=== PATIENT | female | born 1970 | race Caucasian/White ===

== ENCOUNTER 2023-11-25 09:29 | Outpatient (AMB) | payer OTHER, SELFPAY ==
--- NOTE | 2023-11-25 09:31 | MHC.OFFVIS ---
Vital Signs 11/25/23 09:38 11/25/23 09:38 11/25/23 10:28 Height 5 ft 5 in Weight 261 lb BMI 43.4 BP 219/103 H 188/100 H 164/78 H Blood Pressure Location Rt brachial Lt brachial Lt brachial Position Sitting Sitting Sitting Pulse 74 Pulse Source Pulse Oximeter Pulse Oximetry (%) 98 Oxygen Delivery Method Room Air Comment bp done manually Intake Visit Reasons: Right Hip Pain Senior Maintenance Technician Required: Yes Senior Maintenance Technician Language: Turkmen Senior Maintenance Technician Name: This provider speaks Turkmen Accompanied by: Self / Same As Patient Allergies Latex, Natural Rubber Adverse Reaction (Mild, Verified 11/25/23 09:53) Unknown HPI HPI Right Hip Pain: Details: Patient is a pleasant 53-year-old Turkmen female presents today for initial evaluation of right lateral hip pain. This provider is fluent in patient's [place] language. Patient denies any recent trauma, injury, or falls. She reports right hip pain for over 1 year resistant to home exercise, daily walking, NSAIDs, Tylenol, heat and ice, and topical applications. Patient completed physical therapy in the past and currently is not able to pursue PT due to [id number] right hip pain. Pain is present at rest and activity but worse with walking, climbing stairs, or sleeping on her right side. Patient also reports right lateral hip pain with prolonged driving. Denies previous hip injections or surgery. She completed a hip imaging at [facility] several months ago, please imaging are not available for review today. She was told she has right hip OA. Patient denies any fever or chills, abdominal or groin pain, back pain, weakness, bladder or bowel dysfunction or saddle anesthesia. Location: Right lateral hip Duration: Over one year Characteristics of symptom or complaint: Aching, sharp, throbbing Aggravating or associated factors: Walking, movements, right side sleeping, standing, climbing stairs, driving Relieving factors: Topical creams, Voltaren, Tylenol, Ibuprofen, cold packs Treatment: PT in the past, daily walking for exercises [facility] Medical History (Updated 11/25/23 @ 11:55 by RAPHAEL Juarez) Trochanteric bursitis, right hip Diarrhea, unspecified Insomnia, unspecified Generalized abdominal pain Fatty (change of) liver, not elsewhere classified Thyroiditis, unspecified Abdominal pain Pain in hip Review of Systems Const All systems reviewed & are unremarkable except as noted in HPI and below Physical Exam Vital Signs: Last Vital Signs Pulse 74 11/25/23 09:38 BP 164/78 H 11/25/23 10:28 Pulse Ox 98 11/25/23 09:38 Oxygen Delivery Method Room Air 11/25/23 09:38 BMI result Body Mass Index 43.4 General: Appears afebrile. Alert and oriented. Mood and affect appropriate. Follows and participates in conversation appropriately. Respiratory effort is unlabored. No cough. Able to transition from sit to stand unassisted. Ambulates with bilaterally normal heel strike and toe off. Report RLE pain with walking or standing, or prolonged sitting. General: Yes no CVA tenderness Back/Spine/Pelvis Other: Patient is able to walk and stand on heels and tip toes with mild to moderate difficulty on the right due to pain otherwise demonstrating good motor tone. Slightly antalgic gait with limping. Can flex forward to 75-80degrees and extend to 10-15 degrees without significant lumbar pain. Demonstrates 5/5 left and 4.5/5 right strength of quadriceps bilaterally as well as flexion/dorsiflexion of bilateral feet against resistance. 2+ pedal pulses bilaterally. Seated straight leg rise with dorsiflexion negative bilaterally. +1 patellar and achilles reflexes bilaterally. Facet loading test positive bilaterally. Froylan sign is negative bilaterally, Edison?s, Pelvic compression and Stinchfield tests reproduce bilateral lateral hip pain, but no back pain, right>left. No groin pain with I/E hip rotations. Significant TTP to right GTB. Back: no CVA tenderness Cervical Spine: cervical ROM normal and No Cervical spine tenderness Thoracic/Lumbar Spine: thoracic and lumbar spine normal to inspection, Thoracic/lumbar spine scar(s), thoraco-lumbar ROM normal, Lasegue's sign negative, straight leg raise negative bilaterally, No thoracic spinal tenderness and No lumbar spinal tenderness Sacroiliac joints: bilaterally nontender Results Reviewed Results Reviewed: No imaging reports are available for review. Assessment & Plan Assessment & Plan (1) Right hip pain: Code(s): M25.551 - Pain in right hip Category: Medical (2) Greater trochanteric bursitis of right hip: Code(s): M70.61 - Trochanteric bursitis, right hip Category: Medical (3) Morbid obesity with BMI of 40.0-44.9, adult: Code(s): E66.01 - Morbid (severe) obesity due to excess calories; Z68.41 - Body mass index [BMI] 40.0-44.9, adult Category: Medical Plan Medical release request sent to [facility] for most recent hip and pelvis imaging. Patient's symptoms are most consistent with right hip greater trochanteric bursitis and she requests therapeutic injection for it. Schedule right therapeutic GTB injection with local and fluoroscopy. Expectations, risks and benefits were reviewed. Patient is aware she will be contacted to schedule this procedure. Short script provided for tramadol for [id number] pain only. Side effects and precautions were discussed with patient in greater detail. Narcan sent today as well and educated patient on use and safety of both medications. All questions were answered and the patient is in agreement of plan. Follow-up after injections and sooner as needed. Medications: New tramadol 50 mg PO BID PRN 20 tabs 0RF pain (scale score 7-10) 10 days M25.551 - Pain in right hip, M70.61 - Trochanteric bursitis, right hip naloxone 4 mg/actuation (Narcan) spray 1 dose into ONE nostril; alternate nostrils w each dose until help arrives 4 mg intranasal Q2M PRN 2 ea 0RF opioid overdose Coding Level of Care Code New Pt Level 4 (62548) Complex EM visit Add On G2211 Diagnoses Right hip pain M25.551 Greater trochanteric bursitis of right hip M70.61 Morbid obesity with BMI of 40.0-44.9, adult E66.01; Z68.41
[2023-11-25 09:38] VITALS: BP 188/100; BP 219/103; PULSE 74; O2SAT 98; BMI 43.4
[2023-11-25 10:28] VITALS: BP 164/78
== END 2023-11-25 10:12 | disposition home or self-care (01) ==
PROVIDERS: PCP Internal Medicine; Visit Provider Nurse Practitioner Family
DX: M25.551 Pain in right hip (principal); M70.61 Trochanteric bursitis, right hip; E66.01 Morbid (severe) obesity due to excess calories; Z68.41 Body mass index [BMI] 40.0-44.9, adult
CPT/HCPCS: 99204; G2211

== ENCOUNTER → 2023-11-25 09:29 | Outpatient (BNVA) | payer OTHER, SELFPAY | PROVIDERS: PCP Internal Medicine; Visit Provider Nurse Practitioner Family | DX: M25.551 Pain in right hip (principal); M70.61 Trochanteric bursitis, right hip; E66.01 Morbid (severe) obesity due to excess calories; Z68.41 Body mass index [BMI] 40.0-44.9, adult | CPT/HCPCS: 99202 ==

== ENCOUNTER 2023-12-07 06:10 | Outpatient (REF) | payer OTHER, SELFPAY | END 2023-12-07 06:11 | disposition home or self-care (01) | LOC: CF 06:10 | PROVIDERS: Visit Provider Anesthesiology | DX: M70.61 Trochanteric bursitis, right hip (principal); M25.551 Pain in right hip | CPT/HCPCS: 20610; J2795; J3301 ==

== ENCOUNTER 2023-12-07 13:27 | Outpatient (AMB) | payer OTHER, SELFPAY ==
--- NOTE | 2023-12-07 13:29 | A.OFFVIS_ITS ---
Vital Signs 12/07/23 14:02 Height 5 ft 5 in Weight 261 lb BMI 43.4 BP 164/90 H Blood Pressure Location Lt brachial Position Sitting Respiration 16 Pulse 63 Pulse Source Pulse Oximeter Pulse Oximetry (%) 98 Oxygen Delivery Method Room Air Comment pre-op Intake Visit Reasons: RIGHT THERAPEUTIC GTB INJECTION/ATIVAN REQUESTED Allergies Latex, Natural Rubber Adverse Reaction (Mild, Verified 12/07/23 14:12) Unknown [facility] Medical History (Updated 11/25/23 @ 11:55 by RAPHAEL Juarez) Trochanteric bursitis, right hip Diarrhea, unspecified Insomnia, unspecified Generalized abdominal pain Fatty (change of) liver, not elsewhere classified Thyroiditis, unspecified Abdominal pain Pain in hip Physical Exam Vital Signs: Last Vital Signs Pulse 63 12/07/23 14:02 Resp 16 12/07/23 14:02 BP 164/90 H 12/07/23 14:02 Pulse Ox 98 12/07/23 14:02 Oxygen Delivery Method Room Air 12/07/23 14:02 BMI result Body Mass Index 43.4 Assessment & Plan Assessment & Plan (1) Greater trochanteric bursitis of right hip: Code(s): M70.61 - Trochanteric bursitis, right hip Category: Medical (2) Right hip pain: Code(s): M25.551 - Pain in right hip Category: Medical Plan Deya is very pleasant 53 years old female who is suffering from right trochanteric bursitis. She came today for non image guided intertrochanteric bursa steroid injection. Informed consent was explained. The patient was positioned left lateral decubital on examination bed. Time-out was performed delineating name and date of of the patient as well as nature of the procedure as well as site of the procedure. The right hip of the patient was prepped with ChloraPrep, the projection of tip of the trochanter was palpated under the skin. After that sterilely obtained 10 cc of ropivacaine 0.5% mixed with Kenalog 40 mg was injected into the projection of the tip of the right trochanter in fan-like fashion. The patient tolerated the procedure well. Needle was withdrawn. Sterile Band-Aid was applied. The patient recovered and went home without immediate complications. Orders: Orders FL guidance in treatment room Today M70.61 - Trochanteric bursitis, right hip Coding Level of Care Code Procedure Only Diagnoses Greater trochanteric bursitis of right hip M70.61 Right hip pain M25.551
[2023-12-07 14:02] VITALS: BP 164/90; PULSE 63; RESP 16; O2SAT 98; BMI 43.4
== END 2023-12-07 13:50 | disposition home or self-care (01) ==
LOC: HO.PMCPRC 13:28
PROVIDERS: PCP Internal Medicine; Visit Provider Anesthesiology
DX: M70.61 Trochanteric bursitis, right hip (principal); M25.551 Pain in right hip
CPT/HCPCS: 20610

== ENCOUNTER 2024-01-03 11:37 | Outpatient (AMB) | payer OTHER, SELFPAY ==
--- NOTE | 2024-01-03 11:41 | MHC.OFFVIS ---
Vital Signs 01/03/24 11:44 Height 5 ft 5 in Weight 261 lb 8 oz BMI 43.5 BP 138/90 H Blood Pressure Location Lt brachial Position Sitting Respiration 16 Pulse 64 Pulse Source Pulse Oximeter Pulse Oximetry (%) 94 Oxygen Delivery Method Room Air Intake Visit Reasons: RIGHT THERAPEUTIC GTB INJECTION Intake Note: Patient comes in for post-op. Reports pain 5-6/10 bilateral knee pain, left worse than right. Ground Service Equipment Mechanic Required: Yes Ground Service Equipment Mechanic Language: [place] Citizen Ground Service Equipment Mechanic Services: Ground Service Equipment Mechanic Offered & Declined Ground Service Equipment Mechanic Name: Provider is fluent in [place] Citizen Allergies Latex, Natural Rubber Adverse Reaction (Mild, Verified 01/03/24 11:45) Unknown Medication List - Last Reconciled 01/03/24 by RAPHAEL Juarez aspirin 81 mg PO DAILY carvedilol 12.5 mg PO BID diclofenac potassium 50 mg PO BID PRN 30 days lisinopril 40 mg PO DAILY lorazepam 1 mg PO TID naloxone 4 mg/actuation (Narcan) 4 mg intranasal Q2M PRN pantoprazole 20 mg PO DAILY tramadol 50 mg PO BID PRN 10 days zolpidem 10 mg PO BEDTIME PRN HPI Comments Details: Patient presents today to assess response to Right therapeutic GTB injection on 12/07/[address] Lewis. [place] Citizen machine biller not utilized today as this provider is fluent in the patient's pok[place] language. Patient reports 100 % ongoing pain relief with partial improvement in her daily activities and functioning, mobility and sleep. Patient reported concerning symptoms on the next day after injections including flushed face and headache, temporary elevation in BP and blood sugar to 119 which was resolved with taking extra Lisinopril for 2 days and regularly checking her blood sugars. She notified our office with her symptoms which are consistent with side effects related to steroids. She also suffers from right hip OA, neck pain with spasms and bilateral knee pain, left worse than right. Denies radiating back pain, groin, burning, numbness, tingling, bladder or bowel dysfunction or saddle anesthesia. Denies any recent cough, cold, infection, fever or other significant changes in medical history since last office visit. Past Procedures: 12/07/23: Right Therapeutic GTB injection-100% ongoing pain relief PRIOR: Patient is a pleasant 53-year-old [place] Citizen female presents today for initial evaluation of right lateral hip pain. This provider is fluent in patient's pok[place] language. Patient denies any recent trauma, injury, or falls. She reports right hip pain for over 1 year resistant to home exercise, daily walking, NSAIDs, Tylenol, heat and ice, and topical applications. Patient completed physical therapy in the past and currently is not able to pursue PT due to [id number] right hip pain. Pain is present at rest and activity but worse with walking, climbing stairs, or sleeping on her right side. Patient also reports right lateral hip pain with prolonged driving. Denies previous hip injections or surgery. She completed a hip imaging at [facility] several months ago, please imaging are not available for review today. She was told she has right hip OA. Patient denies any fever or chills, abdominal or groin pain, back pain, weakness, bladder or bowel dysfunction or saddle anesthesia. Location: Right lateral hip Duration: Over one year Characteristics of symptom or complaint: Aching, sharp, throbbing Aggravating or associated factors: Walking, movements, right side sleeping, standing, climbing stairs, driving Relieving factors: Topical creams, Voltaren, Tylenol, Ibuprofen, cold packs Treatment: PT in the past, daily walking for exercises [facility] Medical History (Updated 01/03/24 @ 12:43 by RAPHAEL Juarez) Trochanteric bursitis, right hip Diarrhea, unspecified Insomnia, unspecified Generalized abdominal pain Fatty (change of) liver, not elsewhere classified Thyroiditis, unspecified Abdominal pain Pain in hip Social History Household Members: Family Housing: House Alcohol intake: never Patient Tobacco Use Status: Never used Tobacco Review of Systems Const All systems reviewed & are unremarkable except as noted in HPI and below Physical Exam General: Appears afebrile. No acute distress. Morbidly obese. Alert and oriented. Mood and affect appropriate. Pleasant. Follows and participates in conversation appropriately. Respiratory effort is unlabored. No cough. Able to transition from sit to stand unassisted. Ambulates with bilaterally normal heel strike and toe off. Neck Neck: Yes full ROM (mildly limited with extension due to pain), Yes no lymphadenopathy, Yes trachea midline, Yes supple, No anterior neck swelling, Yes no JVD and Yes prominent dorsocervical fat pad General: Yes no CVA tenderness Back/Spine/Pelvis Other: No groin pain with I/E hip rotations. No TTP to GTB on the right, mild TTP to left GTB. Back: no CVA tenderness Cervical Spine: loss of normal cervical lordosis, cervical muscular tenderness, pain with cervical ROM, No Cervical spine scars present, cervical spasm, No Cervical spine tenderness and No step off deformity Thoracic/Lumbar Spine: thoracic and lumbar spine normal to inspection, Thoracic/lumbar spine scar(s), Lasegue's sign negative, straight leg raise negative bilaterally, paraspinal muscle tenderness, No thoracic spinal tenderness and No lumbar spinal tenderness Pelvis: no buttock tenderness Sacroiliac joints: bilaterally nontender Extrem General: Yes capillary refill normal, Yes no clubbing, cyanosis or edema and Yes no calf tenderness Right lower extremity: knee (Limited ROM due to pain.) Details: normal to inspection, tenderness Location: of the patella, of the medial joint line and of the lateral joint line and crepitus; no swelling, no ecchymosis, no deformity and no unusual warmth Left lower extremity: knee (Limited ROM due to pain.) Details: normal to inspection, tenderness Location: of the medial joint line and of the lateral joint line, swelling Location: of the popliteal fossa and crepitus; no ecchymosis, no deformity and no unusual warmth Results Reviewed Results Reviewed: Assessment & Plan Assessment & Plan (1) Bilateral knee pain: Code(s): M25.561 - Pain in right knee; M25.562 - Pain in left knee Category: Medical (2) Bilateral primary osteoarthritis of knee: Code(s): M17.0 - Bilateral primary osteoarthritis of knee Category: Medical (3) Muscle spasms of neck: Code(s): M62.838 - Other muscle spasm Category: Medical (4) Cervical spondylosis: Code(s): M47.812 - Spondylosis without myelopathy or radiculopathy, cervical region Category: Medical (5) Morbid obesity with BMI of 40.0-44.9, adult: Code(s): E66.01 - Morbid (severe) obesity due to excess calories; Z68.41 - Body mass index [BMI] 40.0-44.9, adult Category: Medical (6) Greater trochanteric bursitis of right hip: Code(s): M70.61 - Trochanteric bursitis, right hip Category: Medical (7) Right hip pain: Code(s): M25.551 - Pain in right hip Category: Medical Plan Patient is one month status post right therapeutic GTB injection with ongoing 100% pain relief. She developed temporary side effects with steroids, including headache, flushing face and elevation in BP and blood sugar which she reports resolved in 2 days. Patient is aware that she can not receive another injection in this area for another two-three months. Patient is aware to monitor for any side effects. Imaging from [facility] for spine and hip areas were reviewed and discussed with patient today. Will proceed with bilateral knee x-rays to assess degree of arthritis. Discussed interventional treatments, including gel vs cortisone injections, diagnostic nerve blocks for potential genicular RFA vs Sprint PNS trial. Short script provided for tramadol for gptoustl-es-rkycjb pain only for knee and hip pain and script for tizanidine for neck pain with muscle spasms. Side effects and precautions were discussed with patient in greater detail. Patient has Narcan at home. All questions were answered and the patient is in agreement of plan. Follow-up after injections and sooner as needed. Orders: Orders XR knee LT 3V Today M17.0 - Bilateral primary osteoarthritis of knee, M25.561 - Pain in right knee, M25.562 - Pain in left knee XR knee RT 3V Today M17.0 - Bilateral primary osteoarthritis of knee, M25.561 - Pain in right knee, M25.562 - Pain in left knee Medications: New lidocaine 5% 2 patches topical DAILY 30 days 60 ea 0RF pain M17.0 - Bilateral primary osteoarthritis of knee, M25.561 - Pain in right knee, M25.562 - Pain in left knee tizanidine 4 mg PO BEDTIME 90 days PRN 90 tabs 1RF muscle spasticity M47.812 - Spondylosis without myelopathy or radiculopathy, cervical region, M62.838 - Other muscle spasm Changed From tramadol 50 mg PO BID 10 days PRN 20 tabs 0RF pain (scale score 7-10) M25.551 - Pain in right hip, M25.561 - Pain in right knee, M25.562 - Pain in left knee, M70.61 - Trochanteric bursitis, right hip To tramadol 50 mg PO BID 15 days PRN 30 tabs 0RF pain (scale score 7-10) M25.551 - Pain in right hip, M25.561 - Pain in right knee, M25.562 - Pain in left knee, M70.61 - Trochanteric bursitis, right hip Coding Level of Care Code Est Pt Level 4 (03240) Complex EM visit Add On G2211 Diagnoses Bilateral knee pain M25.561; M25.562 Bilateral primary osteoarthritis of knee M17.0 Muscle spasms of neck M62.838 Cervical spondylosis M47.812 Morbid obesity with BMI of 40.0-44.9, adult E66.01; Z68.41 Greater trochanteric bursitis of right hip M70.61 Right hip pain M25.551
[2024-01-03 11:44] VITALS: BP 138/90; PULSE 64; RESP 16; O2SAT 94; BMI 43.5
== END 2024-01-03 12:06 | disposition home or self-care (01) ==
PROVIDERS: PCP Internal Medicine; Visit Provider Nurse Practitioner Family
DX: M25.561 Pain in right knee (principal); M25.562 Pain in left knee; M17.0 Bilateral primary osteoarthritis of knee; M62.838 Other muscle spasm; M47.812 Spondylosis without myelopathy or radiculopathy, cervical region; E66.01 Morbid (severe) obesity due to excess calories; Z68.41 Body mass index [BMI] 40.0-44.9, adult; M70.61 Trochanteric bursitis, right hip; M25.551 Pain in right hip
CPT/HCPCS: 99214; G2211

== ENCOUNTER 2024-01-03 11:37 | Outpatient (REF) | payer OTHER, SELFPAY ==
--- NOTE | ~2024-01-03 | XR_ITS ---
EXAMINATION: XR KNEE, LEFT CLINICAL INFORMATION: M25.561 - Pain in right knee COMPARISON: None available. TECHNIQUE: Three views of the left knee. FINDINGS: No fracture, dislocation, or suspicious bone lesion. Normal bone mineralization. Normal alignment. Minimal joint space narrowing medial compartment and patellofemoral compartment with small marginal osteophytes. Lateral compartment appears preserved. There is no evidence of joint effusion present. There is no soft tissue abnormality. XR/XR knee LT 3V IMPRESSION: 1. No acute findings. No joint effusion. 2. Mild medial and patellofemoral compartment osteoarthrosis. Electronically signed by: Luis Delvalle MD 01/18/2024 01:44 PM [facility]
--- NOTE | ~2024-01-03 | XR_ITS ---
EXAMINATION: XR KNEE, RIGHT CLINICAL INFORMATION: M25.561 - Pain in right knee COMPARISON: None available. TECHNIQUE: Three views of the right knee. FINDINGS: No fracture, dislocation, or suspicious bone lesion. Normal bone mineralization. Normal alignment. Minimal joint space narrowing medial compartment and patellofemoral compartment with small marginal osteophytes. Mild lateral patellar tilt. Lateral compartment appears preserved. There is no evidence of joint effusion present. There is no soft tissue abnormality. XR/XR knee RT 3V IMPRESSION: 1. No acute findings. No joint effusion. 2. Mild medial and patellofemoral compartment osteoarthrosis. Electronically signed by: Luis Delvalle MD 01/18/2024 01:46 PM EST
== END 2024-01-03 11:38 | disposition home or self-care (01) ==
LOC: HO.XRAY 11:37
PROVIDERS: PCP Internal Medicine; Visit Provider Nurse Practitioner Family
DX: M17.0 Bilateral primary osteoarthritis of knee (principal); M62.838 Other muscle spasm; M47.812 Spondylosis without myelopathy or radiculopathy, cervical region; M70.61 Trochanteric bursitis, right hip; M25.551 Pain in right hip; E66.01 Morbid (severe) obesity due to excess calories; Z68.41 Body mass index [BMI] 40.0-44.9, adult
CPT/HCPCS: 73562; 99212

== ENCOUNTER → 2024-01-03 12:15 | Outpatient (BNV) | payer OTHER, SELFPAY | PROVIDERS: PCP Internal Medicine; Visit Provider Radiology Diagnostic Radiology | DX: M25.562 Pain in left knee (principal); M25.561 Pain in right knee | CPT/HCPCS: 73562 ==

== ENCOUNTER 2024-02-03 10:04 | Outpatient (AMB) | payer OTHER, SELFPAY ==
[2024-02-03 10:24] VITALS: BP 178/99; PULSE 68; O2SAT 96; BMI 43.3
--- NOTE | 2024-02-03 10:24 | MHC.OFFVIS ---
Vital Signs 02/03/24 10:24 Height 5 ft 5 in Weight 260 lb BMI 43.3 BP 178/99 H Blood Pressure Location Lt brachial Position Sitting Pulse 68 Pulse Source Pulse Oximeter Pulse Oximetry (%) 96 Oxygen Delivery Method Room Air Intake Visit Reasons: LEFT KNEE EUFLEXXA INJECTION Allergies Latex, Natural Rubber Adverse Reaction (Mild, Verified 02/03/24 10:29) Unknown Medication List - Last Reconciled 02/03/24 by Violet Llamas, POLICY CHANGE CLERKS SUPERVISOR aspirin 81 mg PO DAILY carvedilol 12.5 mg PO BID diclofenac potassium 50 mg PO BID PRN 30 days lidocaine 5% 2 patches topical DAILY 30 days lisinopril 40 mg PO DAILY lorazepam 1 mg PO TID naloxone 4 mg/actuation (Narcan) 4 mg intranasal Q2M PRN pantoprazole 20 mg PO DAILY tizanidine 4 mg PO BEDTIME PRN 90 days tramadol 50 mg PO Q8H PRN 15 days zolpidem 10 mg PO BEDTIME PRN PFSH Medical History (Updated 01/03/24 @ 12:43 by RAPHAEL Juarez) Trochanteric bursitis, right hip Diarrhea, unspecified Insomnia, unspecified Generalized abdominal pain Fatty (change of) liver, not elsewhere classified Thyroiditis, unspecified Abdominal pain Pain in hip Social History (Updated 01/03/24 @ 12:26 by RAPHAEL Juarez) Household Members: Family Housing: House Alcohol intake: never Patient Tobacco Use Status: Never used Tobacco Office Procedures AMB Joint Injection/Aspiration Joint Injection/Aspiration Primary Site: left knee Approach Used: anteromedial Coding 00729 - Large joint Procedure code (CPT) selection complete Office Meds Synvisc-One 48 mg/6 mL intra-articular syringe Performing Provider: Steve Lewis MD Performing Location: [facility] Documented (not given) by: Steve Lewis MD on 02/03/24 10:29 Reason Not Given: No Longer Necessary Euflexxa 10 mg/mL (mw 2.4-3.6 million) intra-articular syringe Performing Provider: Steve Lewis MD Performing Location: [facility] Administered by: Steve Lewis MD on 02/03/24 10:29 Dose Route Admin Location Dispensed Lot Number Expiration Date [place] [employer] Announcer 20 mg intra-articular 2 mL [id number] 01/14/25 [address]-6 [employer] Assessment & Plan Assessment & Plan (1) Bilateral knee pain: Code(s): M25.561 - Pain in right knee; M25.562 - Pain in left knee Category: Medical (2) Bilateral primary osteoarthritis of knee: Code(s): M17.0 - Bilateral primary osteoarthritis of knee Category: Medical Plan Intra-articular left knee hyaluronic acid preparation injection. After obtaining informed consent were risks benefits and alternatives were explained to the patient, the patient was positioned sitting on the examination bed. The left knee was exposed. Time-out was performed. The anterior medial surface of the patient's knee was prepped with ChloraPrep and after that sterilely obtained Euflexxa 2 cc was injected from anterior medial to posterior lateral direction into retropatellar space. Upon completion of the injection needle was removed sterile Band-Aid was applied. Patient tolerated procedure well. She was instructed to move the lower leg to spread the medication in the joint. Orders: Orders AMB Joint Injection/Aspiration Today M17.0 - Bilateral primary osteoarthritis of knee, M25.561 - Pain in right knee, M25.562 - Pain in left knee Medications: New Synvisc-One (hylan g-f 20) 48 mg (6 mL) intra-articular ONCE 6 mL 0RF NS M17.0 - Bilateral primary osteoarthritis of knee, M25.561 - Pain in right knee, M25.562 - Pain in left knee Euflexxa (sodium hyaluronate (viscosup)) 20 mg (2 mL) intra-articular ONCE 2 mL 0RF NS M17.0 - Bilateral primary osteoarthritis of knee, M25.561 - Pain in right knee, M25.562 - Pain in left knee Coding Level of Care Code Procedure Only Diagnoses Bilateral knee pain M25.561; M25.562 Bilateral primary osteoarthritis of knee M17.0 CPT Codes Coding - 64460 Large joint: 01944 - Large joint ([id number])
== END 2024-02-03 10:26 | disposition home or self-care (01) ==
PROVIDERS: PCP Internal Medicine; Visit Provider Anesthesiology
DX: M25.562 Pain in left knee (principal); M17.0 Bilateral primary osteoarthritis of knee
CPT/HCPCS: 20610

== ENCOUNTER → 2024-02-03 10:04 | Outpatient (BNVA) | payer OTHER, SELFPAY | PROVIDERS: PCP Internal Medicine; Visit Provider Anesthesiology | DX: M17.0 Bilateral primary osteoarthritis of knee (principal) | CPT/HCPCS: 20610; J7323 ==

== ENCOUNTER 2024-03-03 13:11 | Outpatient (AMB) | payer OTHER, SELFPAY ==
--- NOTE | 2024-03-03 13:11 | MHC.OFFVIS ---
Vital Signs 03/03/24 13:12 Height 5 ft 5 in Intake Visit Reasons: LEFT KNEE EUFLEXXA INJECTION [employer] Required: Yes [employer] Language: Croatian [employer] Services: [employer] Offered & Declined [employer] Name: Provider is fluent in Croatian Information Interpreted: non-clinical & clinical Allergies Latex, Natural Rubber Adverse Reaction (Mild, Verified 03/03/24 13:12) Unknown HPI Comments Details: Patient presents today via telehealth encounter to assess response to left knee EUFLEXXA injection on 02/03/[address] Lewis. Patient reports 70-75% ongoing pain relief since procedure with significant improvement in her mobility, range of motion, climbing stairs with improved tolerance in better sleep. She received right therapeutic GTB injection on 12/07/23 and continues to report ongoing benefits. Denies any recent cough, cold, infection, fever or other significant changes in medical history since last office visit. Past Procedures: 02/03/24: Left knee Euflexxa skstjuyqs-11-89% ongoing pain relief 12/07/23: Right Therapeutic GTB injection-100% ongoing pain relief PRIOR: Patient is a pleasant 53-year-old Croatian female presents today for initial evaluation of right lateral hip pain. This provider is fluent in patient's c[place] language. Patient denies any recent trauma, injury, or falls. She reports right hip pain for over 1 year resistant to home exercise, daily walking, NSAIDs, Tylenol, heat and ice, and topical applications. Patient completed physical therapy in the past and currently is not able to pursue PT due to [id number] right hip pain. Pain is present at rest and activity but worse with walking, climbing stairs, or sleeping on her right side. Patient also reports right lateral hip pain with prolonged driving. Denies previous hip injections or surgery. She completed a hip imaging at [facility] several months ago, please imaging are not available for review today. She was told she has right hip OA. Patient denies any fever or chills, abdominal or groin pain, back pain, weakness, bladder or bowel dysfunction or saddle anesthesia. Location: Right lateral hip Duration: Over one year Characteristics of symptom or complaint: Aching, sharp, throbbing Aggravating or associated factors: Walking, movements, right side sleeping, standing, climbing stairs, driving Relieving factors: Topical creams, Voltaren, Tylenol, Ibuprofen, cold packs Treatment: PT in the past, daily walking for exercises [facility] Medical History Trochanteric bursitis, right hip Diarrhea, unspecified Insomnia, unspecified Generalized abdominal pain Fatty (change of) liver, not elsewhere classified Thyroiditis, unspecified Abdominal pain Pain in hip Social History Household Members: Family Housing: House Alcohol intake: never Patient Tobacco Use Status: Never used Tobacco Review of Systems Const All systems reviewed & are unremarkable except as noted in HPI and below ENT Reports Normal hearing present Neuro Reports Normal hearing present and Denies confusion Psych Denies confusion Physical Exam Const General: cooperative, alert and awake; No confusion Orientation/consciousness: patient oriented x3 and No confusion Resp Effort & Inspection: able to speak in complete sentences, no audible wheezes and no cough Neuro General: patient oriented x3 and No confusion Cranial nerves: Yes Normal hearing present Cognition (Neuro): normal cognition Psych Mental Status: mental status grossly normal Speech and movement: Clear speech present Affect: normal affect Attitude: cooperative Thought process: Normal thought process present Thought content: Normal thought content present and No Depressive thoughts present Insight: Good insight present (Psych) Judgement: Good judgement present (Psych) Telehealth Telehealth Telehealth Platform: Telephone Location of provider rendering services: practice address Location of patient: address on file Patient Identification confirmed using: Name, : Yes Telehealth method: voice only Patient verbally consented to treatment: Yes Patient verbally consented to billing insurance company: Yes Patient informed of any privacy concerns related to visit: Yes Minutes spent on Phone/Video with Pt.: 7 Results Reviewed Results Reviewed: XR KNEE, RIGHT 01/03/24 CLINICAL INFORMATION: M25.561 - Pain in right knee FINDINGS: No fracture, dislocation, or suspicious bone lesion. Normal bone mineralization. Normal alignment. Minimal joint space narrowing medial compartment and patellofemoral compartment with small marginal osteophytes. Mild lateral patellar tilt. Lateral compartment appears preserved. There is no evidence of joint effusion present. There is no soft tissue abnormality. IMPRESSION: 1. No acute findings. No joint effusion. 2. Mild medial and patellofemoral compartment osteoarthrosis. XR KNEE, LEFT 01/03/24 CLINICAL INFORMATION: M25.561 - Pain in right knee FINDINGS: No fracture, dislocation, or suspicious bone lesion. Normal bone mineralization. Normal alignment. Minimal joint space narrowing medial compartment and patellofemoral compartment with small marginal osteophytes. Lateral compartment appears preserved. There is no evidence of joint effusion present. There is no soft tissue abnormality. IMPRESSION: 1. No acute findings. No joint effusion. 2. Mild medial and patellofemoral compartment osteoarthrosis. Assessment & Plan Assessment & Plan (1) Bilateral knee pain: Code(s): M25.561 - Pain in right knee; M25.562 - Pain in left knee Category: Medical (2) Bilateral primary osteoarthritis of knee: Code(s): M17.0 - Bilateral primary osteoarthritis of knee Category: Medical Plan Patient is one month status post left knee Euflexxa injection with ongoing 70-75% pain relief with improved functioning, mobility and sleep. Patient is aware that she can not receive another injection in this area for another two months. Patient is aware to monitor for side effects. She will notify our office when her knee pain returns to baseline. All questions were answered and the patient is in agreement of plan. Follow up as needed. I hereby testify that I spent 7 minutes in conversation with this patient as well as with planning and coordinating care for this patient and organizing this note. Coding Level of Care Code Tele Est Pt Level 2 (40502) Complex EM visit Add On G2211 Diagnoses Bilateral knee pain M25.561; M25.562 Bilateral primary osteoarthritis of knee M17.0
== END 2024-03-03 13:17 | disposition home or self-care (01) ==
LOC: HO.PMC 13:11
PROVIDERS: PCP Internal Medicine; Visit Provider Nurse Practitioner Family
DX: M25.561 Pain in right knee (principal); M25.562 Pain in left knee; M17.0 Bilateral primary osteoarthritis of knee
CPT/HCPCS: 99212; G2211

== ENCOUNTER 2024-07-19 08:37 | Outpatient (REF) | payer OTHER, SELFPAY ==
--- OUTSIDE RECORDS SUMMARY | 2024-07-19 08:47 | XMS_ITS | Clinical Summary ---
Author Organization [facility] Address [address] [place] [address] Phone Care Team Providers Care Client Account Representative Name Role Phone Daryl Pena MD Primary Care Provider [phone] Medical History Medical History Date Comments Internal prolapsed hemorrhoids 09/08/2016 D X:Internal prolapsed hemorrhoids Chronic constipation 09/08/2016 DX:Chronic constipation Anal stricture 09/22/2012 DX:Anal strictur e Anal fissure 09/08/2016 DX:Anal fissure Social History Tobacco Use Types Packs/Day Years Used Date Smoking Tobacco: Never Assessed Comments Unknown Sex and Gender Information Value Date Recorded Sex Assigned at Not on file Legal Sex Female 8:20 AM EST Gender Identity Not on file Sexual Orientation Not on file Obstetrics History Last Filed Vital Signs Vital Sign Reading Time Taken Comments Blood Pressure 142/84 11/16/2023 8:58 AM EDT Pulse 82 11/16/2023 8:58 AM EDT Temperature - - Respiratory Rate - - Oxygen Saturation - - Inhaled Oxygen Concentration - - Weight 117 kg (258 lb) 11/16/2023 8:58 AM EDT Height 165.1 cm (5' 5 ) 11/16/2023 8:58 AM EDT Body Mass Index 42.93 11/16/2023 8:58 AM EDT Plan of Treatment Health Maintenance Due Date Last Done Comments DTaP,Tdap,and Td Vaccines (1 - Tdap) 07/25/1987 Hepatitis A Vaccines (1 of 2 - Risk 2-dose series) 07/25/1987 Hepatitis B Vaccines (1 of 3 - 19+ 3-dose series) 07/25/1987 Pneumococcal Vaccine: 50+ Ye ars (1 of 2 - PCV) 07/25/1987 Pneumococcal Vaccine: Pediat rics (0 to 5 Years) and At-Risk Patients (6 to 64 Years) (1 of 2 - PCV) 07/25/1987 Cervical Cancer Screening: P ap Smear 1989 Zoster Vaccines (1 of 2) 2018 Breast Cancer Screening 03/15/2021 03/15/2019 Colorectal Cancer Screening: Colonoscopy 01/24/2022 Depression Screening 01/24/2022 HIV Screening 01/24/2022 Hepatitis C Screening 01/24/2022 Social Influencers of Health Screening 01/24/2022 COVID-19 Vaccine (2023-2 5 season) 2023 Influenza Vaccine (Season Ended) 2024 HIB Vaccines Aged Out No longer eligi ble based on patient's age to complete this topic HPV Vaccines Aged Out No longer eligi ble based on patient's age to complete this topic IPV Vaccines Aged Out No longer eligi ble based on patient's age to complete this topic MMR Vaccines Aged Out No longer eligi ble based on patient's age to complete this topic Meningococcal ACWY Vaccine Aged Out N o longer eligible based on patient's age to complete this topic Meningococcal B Vaccine Aged Out No l onger eligible based on patient's age to complete this topic RSV Immunization Patients Un paulina 20 months Aged Out No longer eligible b ased on patient's age to complete this topic Varicella Vaccines Aged Out No longer eligible based on patient's age to complete this topic Procedures Procedure Name Priority Date/Time Associated Diagnosis Comments [facility] SCREENING DIGITAL Routine 03/15/2019 1:44 PM EST Encounter for screening mammogram for malignant neoplasm of breast from Last 3 Months or Most Recently Relevant to Health Maintenance Results * VELMA SCREENING DIGITAL (03/15/2019 1:44 PM EST) Anatomical Region Laterality Modality Mammography 03/15/2019 10:1 5 AM EST Narrative 03/15/2019 1:44 PM EST [facility] Diagnostic Imaging Department [address] [place], [place] [id number] Patient: ??NATALIO BONNER ?/Age/Sex: 1970 - 48 - F Unit#: ??[id number] ? Location/Status: ??SPDIMAM/REG CLI ? Mnemonic/Ordering Site: ??DIGSC/SPMAM Ordering Physician: ??INDIA BOYD Velma Screening Digital - 03/15/19 - 1033 INDICATION: SCREENING COMPARISON: [facility] mammograms of 05/08/2010 and outside exam of 07/03/14 TECHNIQUE: CC and MLO views of the breasts were obtained, using full field digital mammography with 3D tomosynthesis views in the MLO projection. Computer aided detection with the [employer] 7.2-H was employed. FINDINGS: The breasts are almost entirely composed of fat. No suspicious masses, suspicious microcalcifications, or areas of architectural distortion are identified. ??Rare benign-appearing breast calcifications are present bilaterally. There are no secondary signs of breast malignancy. Compared to the prior exam, no adverse interval change. IMPRESSION: ??No specific mammographic evidence of breast malignancy. Lack of an imaging correlate should not deter or delay biopsy of a clinically significant palpable finding. BI-RADS ??- Category 2 - Benign finding 3342F, 7025F Annual screening mammography is recommended. Patient entered into a reminder system with a target date for the next mammogram. (G0202 / [id number]) , ??[id number] Dictating Physician: ??STEVE CARBONE MD Electronically Signed by: ??STEVE CARBONE MD Dic Date/Time: ??03/15/19 1340 Sign date/Time: ??03/15/19 1344 Procedure Note Steve Carbone - 02/04/2022 [facility] Diagnostic Imaging Department [address] [place] [id number] Patient: ABDIASORALIANATALIOMANA Justin./Age/Sex: 1970 - 48 - F Unit#: [id number] Location/Status: [facility] CLI Mnemonic/Ordering Site: [facility] Ordering Physician: INDIA BOYD [facility] Velma Screening Digital - 03/15/19 - 1033 INDICATION: SCREENING COMPARISON: [facility] mammograms of 05/08/2010 and outside examof 07/03/14 TECHNIQUE: CC and MLO views of the breasts were obtained, using full field digital mammography with 3D tomosynthesis views in the MLO projection. Computer aided detection with the [employer] 7.2-H was employed. FINDINGS: The breasts are almost entirely composed of fat. No suspicious masses, suspicious microcalcifications, or areas ofarchitectural distortion are identified. Rare benign-appearing breast calcificationsare present bilaterally. There are no secondary signs of breast malignancy. Compared to the prior exam, no adverse interval change. IMPRESSION: No specific mammographic evidence of breast malignancy. Lack of an imaging correlate should not deter or delay biopsy of aclinically significant palpable finding. BI-RADS - Category 2 - Benign finding 3342F, 7025F Annual screening mammography is recommended. Patient entered into a reminder system with a target date for the next mammogram. G0202 [id number] , [id number] Dictating Physician: STEVE CARBONE MD Electronically Signed by: STEVE CARBONE MD Dic Date/Time: 03/15/19 1340 Sign date/Time: 03/15/19 1343 [place] [facility] IMG BI PROCEDURES Final Res ult from Last 3 Months or Most Recently Relevant to Health Maintenance Care Teams Client Account Representative Relationship Specialty Start Date End Date Daryl Pena MD [address] [facility] [address] [place], [place] PCP - General Internal Medicine 06/05/20
== END 2024-07-19 08:38 | disposition home or self-care (01) ==
LOC: HO.HOSX 08:37
PROVIDERS: Visit Provider Physician Assistant
DX: Z13.89 Encounter for screening for other disorder (principal)